=== PATIENT | male | born 1990 | race Caucasian/White ===

== ENCOUNTER → 2021-12-09 12:24 | Outpatient (CLI) | payer OTHER, SELFPAY ==
--- NOTE | 2021-12-09 | DI.RAD.S_ITS ---
PROCEDURE: XR SHOULDER RT MIN 2V INDICATIONS: Low back pain, unspecified/Pain in unspecified shoulder TECHNIQUE: 3 views of the shoulder were acquired. COMPARISON: None. FINDINGS: Bones: No fractures or dislocations. No suspicious bony lesions. Visualized ribs appear intact. Soft tissues: No suspicious soft tissue calcifications. IMPRESSION: No significant osseous abnormality. Dictated by: Ed Zabala M.D. on 12/09/2021 at 14:41 Approved by: Ed Zabala M.D. on 12/09/2021 at 14:42
--- NOTE | 2021-12-09 | DI.RAD.S_ITS ---
PROCEDURE: XR LUMBAR SPINE 2-3V INDICATIONS: Low back pain, unspecified/Pain in unspecified shoulder TECHNIQUE: 3 views of the lumbar spine were acquired. COMPARISON: None. FINDINGS: Bones: 5 [id number] vertebrae are present. There is normal bony alignment. No vertebral body compression fractures. No suspicious bony lesions. Soft tissues: Overlying bowel gas pattern is normal. No suspicious soft tissue calcifications. IMPRESSION: Unremarkable radiographic examination of lumbar spine. Dictated by: Ernie Franco M.D. on 12/09/2021 at 14:12 Approved by: Ernie Franco M.D. on 12/09/2021 at 14:13
== END ==
PROVIDERS: PCP Family Medicine; Referring Provider Internal Medicine Cardiovascular Disease; Visit Provider Internal Medicine Cardiovascular Disease
DX: M25.511 Pain in right shoulder (principal); M54.50 Low back pain, unspecified
CPT/HCPCS: 72100; 73030